=== PATIENT | male | born 1960 | race Caucasian/White ===

== ENCOUNTER 2022-03-27 16:41 | Emergency (ER) | payer OTHER ==
[~2022-03-27 16:41] MED LIST: BENTYL 20MG TAB20 MG PO; CITRATE OF MAG296 ML PO; ZOFRAN ODT 4 MG4 MG SL
[2022-03-28] MEDS ORDERED: BUSPIRONE HCL10 MG PO (15:28)
[2022-03-28] MEDS ORDERED: ZOLPIDEM TARTRAT5 MG PO (15:28)
[2022-03-28] MEDS ORDERED: HYDROCODON-ACE1 EAC6 PO (15:28)
[2022-03-28] MEDS ORDERED: CYCLOBENZAPRINE5 MG PO (15:28)
[2022-03-28] MEDS ORDERED: SERTRALINE HCL100 MG PO (15:29)
[2022-03-28] MEDS ORDERED: PROTONIX 40 MG40 M1 PO (15:29)
[2022-04-08] MEDS ORDERED: BACTROBAN OINT22 GM TOP (16:42)
[2022-04-08] MEDS ORDERED: LOVENOX40 MG/0.4 SQ (16:43)
[2022-04-08] MEDS ORDERED: COLACE100 MG PO (16:43)
[2022-04-08] MEDS ORDERED: MIRALAX17 GM PO (16:44)
[2022-04-08] MEDS ORDERED: VITAMIN C500 M4 PO (16:45)
[2022-04-08] MEDS ORDERED: NICODERM CQ1 EAC2 TD (16:45)
[2022-04-08] MEDS ORDERED: TYLENOL EXTRA500 MG PO (16:45)
[2022-04-08] MEDS ORDERED: ZINC50 M2 PO (16:46)
[2022-04-08] MEDS ORDERED: COMBIVENT RESPIM4 GM INH (16:47)
[2022-04-08] MEDS ORDERED: ROXICODONE TAB 55 MG PO (16:48)
[2022-04-08] MEDS ORDERED: LACTULOSE20 GM/30 M PO (16:48)
== END 2022-03-27 21:17 | disposition left against medical advice (07) ==
LOC: ER1 16:41
DX: Z53.21 Procedure and treatment not carried out due to patient leaving prior to being seen by health care provider (principal)